=== PATIENT | male | born 1945 | race Caucasian/White ===

== ENCOUNTER → 2021-04-15 | Outpatient (CLI) | payer BC ==
--- NOTE | 2021-04-15 17:29 | KCIC ---
Study: XR SHOULDER_LEFT 2+ VIEWS Indication: Left rotator cuff tendinitis. Comparison: None. Findings: Mild glenohumeral joint arthrosis. Mild degenerative changes at the greater tuberosity. AC joint arth rosis is mild. No fracture or traumatic malalignment. 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 The interval is mildly narrowed on the internal rotation view but this is felt in p art from beam angulation. Ovoid nodule measuring 1.9 cm craniocaudal projects over the left ninth rib on the AP internal rotati on view. Impression: 1. Mild glenohumeral and acromioclavicular joint arthrosis. No acute fracture. Alignment is within no rmal limits to include the acromiohumeral interval based on the AP external rotation view. 2. Ovoid nodular focus measuring up to 1.9 cm projects over the left ninth rib (see soto image). This could represent a granuloma or theoretically a nipple shadow but is incompletely characterized. Follo w-up PA and lateral chest radiographs are recommended to better evaluate and help determine the need for a CT. Electronically signed by: LOYDA SAM MD (04/15/2021 5:26 PM) [facility]
== END ==
LOC: KCIC 14:55
PROVIDERS: ATTEND Family Medicine
DX: M19.012 Primary osteoarthritis, left shoulder (principal); M75.82 Other shoulder lesions, left shoulder
CPT/HCPCS: 73030